=== PATIENT | male | born 1995 | race African-American/Black ===

== ENCOUNTER 2017-01-13 17:41 | Inpatient (IN) | payer OTHER ==
--- NOTE | 2017-01-13 19:43 | PROVIDER DOCUMENTATION ---
HPI-General Adult - General Chief Complaint: Fever Stated Complaint: SENT BY URGENT CARE FOR EVAL Time Seen by Provider: 01/13/17 19:38 Source: RN/ (from [facility]) Allergies/Adverse Reactions: Patient Allergies Allergy/AdvReac Type Severity Reaction Status Date / Time acetaminophen [From Tylenol] Allergy Unknown Unknown Verified 01/13/17 20:20 Home Medications: Home Medication List Medication Instructions Recorded Confirmed Last Taken Type Divalproex [Depakote] 250 mg PO DIRECTED 01/13/17 01/13/17 01/13/17 History Divalproex [Depakote] 500 mg PO DAILY 01/13/17 01/13/17 01/13/17 History Lorazepam [Ativan] 1 mg PO TID 01/13/17 01/13/17 01/13/17 History Pravastatin Sodium 20 mg PO HS 01/13/17 01/13/17 01/13/17 History Quetiapine Fumarate [Seroquel] 600 mg PO HS 01/13/17 01/13/17 01/13/17 History Sennosides/Docusate Sodium [Senna 1 each PO BID 01/13/17 01/13/17 01/13/17 History S Tablet] Trazodone [Desyrel] 50 mg PO DAILY 01/13/17 01/13/17 01/13/17 History - History of Present Illness -Gen Adult Nature of Presenting Problems: 21 y/o BM c/o vomiting x 2 days with coughing. Fever has been 102.5F at home. Unknown diarrhea. Low PO intake. States tachycardia. Pt is non-verbal. No vomiting today; total vomit x 1 last night. Unknown if any other sxs. States vomit is mostly mucus; green-yellow in color. Has had influenza vaccine. Review of Systems - Adult - REVIEW OF SYSTEMS - ADULT ROS:: ROS per family Constitutional: reports: see HPI, fever. denies: chills Eyes: reports: no symptoms reported. denies: blurred vision, double vision Ears, Nose, Mouth & Throat: reports: no symptoms reported Cardiovascular: reports: no symptoms reported. denies: chest pain, palpitations Respiratory: reports: see HPI, cough. denies: shortness of breath Gastrointestinal: reports: no symptoms reported, vomiting. denies: diarrhea Genitourinary: reports: no symptoms reported Musculoskeletal: reports: no symptoms reported. denies: joint pain, joint swelling Integumentary: reports: no symptoms reported. denies: nail changes, rash Neurological: reports: no symptoms reported. denies: numbness, paresthesia Psychiatric: reports: no symptoms reported Endocrine: reports: no symptoms reported. denies: cold intolerance, heat intolerance Hematologic/Lymphatic: reports: no symptoms reported. denies: easy bruising, prolonged bleeding Allergic/Immunologic: reports: no symptoms reported All Other Systems: Reviewed and Negative Past History - Adult - PAST MEDICAL HISTORY-ADULT Review of Records: reports: Nursing Assessment Review, Medications Reviewed Major Childhood Illnesses: reports: other (MR) Cardiovascular: reports: hyperlipidemia Neurological: reports: Seizures/Epilepsy Other Conditions: reports: blindness - SOCIAL HISTORY Living Situation: group Physical Exam-General - PHYSICAL EXAM-ADULT Initial Vital Signs Reviewed: Yes - CONSTITUTIONAL General Appearance: alert - EYES Eyes: pink conjunctivae - HEAD, EARS, NOSE, MOUTH & THROAT HENMT: normocephalic/atraumatic, moist mucous membranes - NECK Neck: supple, normal inspection - RESPIRATORY Respiratory: lungs clear, normal breath sounds. negative: crackles, rales, rhonchi, stridor, wheezing - CARDIOVASCULAR Cardiovascular: tachycardia. negative: bradycardia - GASTROINTESTINAL (ABDOMEN) Abdominal Exam: normal bowel sounds, non tender, soft. negative: distended, guarding, rigid - MUSCULOSKELETAL Extremity: normal range of motion - SKIN Integumentary: normal color, normal turgor, warm/dry - NEUROLOGIC Neurologic: aphasia - PSYCHIATRIC Psych/Mental Status: normal mood/affect Progress - PLAN OF CARE/RESULTS Progress/Plan/Lab Results: Laboratory Tests 01/14/17 01/14/17 01/14/17 00:00 00:00 00:25 WBC 15.76 H RBC 4.40 L Hgb 11.2 L Hct 35.5 L MCV 80.7 L MCH 25.5 L MCHC 31.5 L RDW Std Deviation 18.8 H Plt Count 225 MPV 11.6 H Immature Gran % (Auto) 1.1 H Neut % (Auto) 77.1 H Lymph % (Auto) 7.0 L Faulk % (Auto) 14.7 H Eos % (Auto) 0.0 Baso % (Auto) 0.1 Immature Gran # (Auto) 0.17 H Neut # (Auto) 12.15 H Lymph # (Auto) 1.11 L Faulk # (Auto) 2.31 H Eos # (Auto) 0.00 Baso # (Auto) 0.02 Sodium 135 L Potassium 3.7 Chloride 95 L Carbon Dioxide 25 Anion Gap 15 BUN 15 Creatinine 1.8 H Estimated GFR/1.73 m2 57 BUN/Creatinine Ratio 8 Glucose 122 H Calculated Osmolality 272 Calcium 8.4 L Total Bilirubin 0.45 AST 23 ALT 26 Alkaline Phosphatase 68 Total Protein 8.3 Albumin 3.7 Globulin 4.6 Albumin/Globulin Ratio 0.8 Plasma Lactate 1.3 Orders Category Date Time Status CHEST-2 VIEWS [RAD] Stat Exams 01/13/17 18:18 Taken BLOOD CULTURE [BLDCUL] Stat Lab 01/14/17 00:12 Ordered CBC WITH DIFF [HEME] Stat Lab 01/14/17 00:00 Completed COMPREHENSIVE METABOLIC PANEL [CHEM] Stat Lab 01/14/17 00:00 Completed DIRECT STREP Stat Lab 01/13/17 18:19 Uncollected INFLUENZA SCREEN A/B Stat Lab 01/14/17 00:29 Completed LACTATE, PLASMA [CHEM] Stat Lab 01/14/17 00:25 Completed 0.9% Sodium Chloride Inj [Ns] 1,000 ml Med 01/14/17 01:26 Active IV 999 mls/hr CefTRIAXONE 1 GM/NS [Rocephin 1 gm/Ns] 50 ml Med 01/14/17 01:26 Active IV NOW Ketorolac [Toradol] Med 01/14/17 01:33 Discontinued 30 mg IV NOW ONE Pulse Oximetry Stat Oth 01/13/17 18:18 Active Vital Signs Temp Pulse Resp BP Pulse Ox 01/14/17 01:15 111 H 24 106/56 96 01/14/17 01:06 107 H 24 77/57 98 01/14/17 00:35 117 H 24 87/44 96 01/14/17 00:12 114 H 22 80/53 97 01/13/17 23:46 131 H 16 86/43 93 L 01/13/17 17:49 102.2 F H 139 H 18 119/74 96 acetaminophen [From Tylenol] Allergy (Unknown, Verified 01/13/17 20:20) Unknown Divalproex [Depakote] 250 mg PO DIRECTED 01/13/17 Divalproex [Depakote] 500 mg PO DAILY 01/13/17 Lorazepam [Ativan] 1 mg PO TID 01/13/17 Pravastatin Sodium 20 mg PO HS 01/13/17 Quetiapine Fumarate [Seroquel] 600 mg PO HS 01/13/17 Sennosides/Docusate Sodium [Senna S Tablet] 1 each PO BID 01/13/17 Trazodone [Desyrel] 50 mg PO DAILY 01/13/17 Laboratory 01/14/17 01/14/17 01/14/17 00:25 00:00 00:00 WBC 15.76 H RBC 4.40 L Hgb 11.2 L Hct 35.5 L MCV 80.7 L MCH 25.5 L MCHC 31.5 L RDW Std Deviation 18.8 H Plt Count 225 MPV 11.6 H Immature Gran % (Auto) 1.1 H Neut % (Auto) 77.1 H Lymph % (Auto) 7.0 L Faulk % (Auto) 14.7 H Eos % (Auto) 0.0 Baso % (Auto) 0.1 Immature Gran # (Auto) 0.17 H Neut # (Auto) 12.15 H Lymph # (Auto) 1.11 L Faulk # (Auto) 2.31 H Eos # (Auto) 0.00 Baso # (Auto) 0.02 Sodium 135 L Potassium 3.7 Chloride 95 L Carbon Dioxide 25 Anion Gap 15 BUN 15 Creatinine 1.8 H Estimated GFR/1.73 m2 57 BUN/Creatinine Ratio 8 Glucose 122 H Calculated Osmolality 272 Calcium 8.4 L Total Bilirubin 0.45 AST 23 ALT 26 Alkaline Phosphatase 68 Total Protein 8.3 Albumin 3.7 Globulin 4.6 Albumin/Globulin Ratio 0.8 Plasma Lactate 1.[address] Bermudez; he agreed with admission plan. Discussed admission with family and they agreed with plan. - XRAY 1 XRAY Study: Chest XRAY Interpretation: bilat PNA, per Dr. Bermudez - CONSULTS/PCP/HOSPITALIST Notification #1 *Consult/PCP/Hospitalist*: Dr. Boudreaux Time Discussed: 01:36 Reason/Comments: PNA, MR Consult Disposition: Admit Departure - Departure Time of Disposition Order: 01:36 DIAGNOSIS: Pneumonia Qualifiers: Pneumonia type: due to unspecified organism Laterality: bilateral Lung location : unspecified part of lung Qualified Code(s): J18.9 - Pneumonia, unspecified organism Disposition: ADMITTED INPATIENT 09 Certified Medical Emergency: Emergent Condition: Stable Attestation - Physician/ MEDHAT Attestation Patient care was provided by Advanced Practice Provider:: Yes Advanced Practice Provider:: Brittni Dejesus Advanced Practice Provider documentation review:: The Mid-level provider documentation, treatment plan and medical decision making was reviewed by the physician who agrees with all treatment and medical decision making by the MLP.
[2017-01-14 00:30] LABS: BASO% 0.1 % (0.0-0.8); HEMATOCRIT 35.5 % (42.0-52.0); HEMOGLOBIN 11.2 g/dL (14.0-18.0); IMM GRAN# 0.17 X1000 (0.0-0.04); IMM GRAN% 1.1 % (0.0-0.5); LYMPH# 1.11 X1000 (1.2-3.4); MANUAL DIFF NEEDED? NO; MCH 25.5 PG (27-31); MCHC 31.5 g/dL (33-37); MCV 80.7 FL (81-99); MONO# 2.31 X1000 (0.11-0.59); MONO% 14.7 % (1.7-9.3); MPV 11.6 FL (7.4-10.4); NEUT% 77.1 % (42.2-75.2); PLT 225 X1000 (130-400)
[2017-01-14 00:41] LABS: ALBUMIN 3.7 g/dL (3.5-5.0); CALCIUM 8.4 mg/dL (8.8-10.2); POTASSIUM 3.7 mmol/L (3.5-5.1); TOTAL BILIRUBIN 0.45 mg/dL (0.20-1.00); TOTAL PROTEIN 8.3 g/dL (6.3-8.3)
[2017-01-14] MEDS ORDERED: ROCEPHIN 1 GM/NS 50 ML IV ONE (01:26)
[2017-01-14] MEDS ORDERED: NS 1,000 ML IV ONE ×2 (01:26→01:39)
[2017-01-14] MEDS ORDERED: TORADOL IV ONE (01:33)
[2017-01-14] MEDS ORDERED: LEVAQUIN 750 MG/D5W 150 ML IV ONE (01:38)
[2017-01-14] MEDS ORDERED: LEVAQUIN 500 MG/D5W 100 ML IV ONE (01:40)
[2017-01-14] MEDS ORDERED: DUONEB (A & A) INH PRN (03:33)
[2017-01-14] MEDS: SODIUM CHLORIDE 0.9% INJ SCH (05:00)
[2017-01-14] MEDS: PROTONIX IV SCH (05:00)
[2017-01-14] MEDS: ZOSYN 3.375 GM/NS 50 ML IV SCH ×4 (05:05→20:49)
--- NOTE | 2017-01-14 05:44 | HISTORY AND PHYSICAL ---
PRIMARY CARE PROVIDER: Dr. Fabricio Byrd. CHIEF COMPLAINT: Fever and cough. HISTORY OF PRESENT ILLNESS: Mr. Vivar is a 21-year-old -[place]aur[place] male with a history of mental retardation, seizures, hyperlipidemia, and is also legally blind. Caregivers who are present at bedside report that since Saturday the patient has had fever and a nonproductive wet cough. They have also reported that he has had decreased oral and that all today he slept and was only up for approximately 2 to 3 hours which was unlike him. They reported that he had a fever of up to 102.5 and upon presentation to the ER patient's temperature was 102.2. They did also report that he vomited 1 time today though they deny him having any diarrhea. They stated that his last bowel movement was on Saturday and was normal, no bloody or black, tarry stools. Caregivers also report that he has been urinating normally, has not had decreased urine output. Unfortunately, the patient is not able to verbalize very well. Caregivers only report that occasionally he will say one word or two. The patient was seen at an urgent care prior to his arrival to the ER where they tried to obtain a chest x-ray though due to the patient being uncooperative they did decide to bring him on to the ER for further evaluation. Prior to the patient's arrival to the ER, he did receive his nighttime medications of Ativan, Seroquel, trazodone, and Depakote. Due to this, the patient is quite sedated at this time and does have loud snoring respirations noted upon examination. He was only slightly responsive to painful stimuli. Patient also does appear to have sleep apnea as well. He does have periods where he has decreased respirations and at this time does become hypoxic into the high 80s. Upon evaluation in the ER, the patient was found to have leukocytosis with a white blood cell count of 15.7. Chest x-ray did show what appeared to be a possible right lower lobe pneumonia though given the patient's current respiratory status and what appears to be an undiagnosed history of sleep apnea we have a high suspicion for aspiration pneumonia as well. He also does appear to have an acute kidney injury with a creatinine of 1.8 likely secondary to fluid volume depletion as well as possible side effects from sedative medications. The patient did have some hypotension in the ER with lowest blood pressure reading of 80/53. Normal saline boluses have been ordered and since then his blood pressure has improved with a last reading of 102/56. At this time, we will admit the patient for further treatment and evaluation of his pneumonia. REVIEW OF SYSTEMS: A 14-point review of systems was conducted with the patient, the patient's caregivers at bedside, and all were negative except for pertinent positives mentioned in above HPI. PAST MEDICAL HISTORY: 1. Mental retardation. 2. Legally blind. 3. Seizures. 4. Hyperlipidemia. PAST SURGICAL HISTORY: No known past surgeries. SOCIAL HISTORY: No known history of tobacco, alcohol, or illicit drug use. The patient currently is a resident at a half-way in [place]. FAMILY HISTORY: Due to the patient's current condition and no family members present at this time, we are unable to obtain past family medical history. ALLERGIES: The patient has allergies to Tylenol. HOME MEDICATIONS: 1. Depakote 500 mg p.o. daily in the morning. 2. Depakote 250 mg p.o. at noon. 3. Depakote 250 mg p.o. at bedtime. 4. Trazodone 50 mg p.o. daily. 5. Seroquel 60 mg p.o. at bedtime. 6. Pravastatin 20 mg p.o. at bedtime. 7. Senna S tablet 1 p.o. b.i.d. 8. Ativan 1 mg p.o. t.i.d. DIAGNOSTIC DATA: White cell count is 15.76. Hemoglobin 11.2. Hematocrit 35.5. Platelet count is 225. Sodium 135. Potassium 3.7. Chloride 95. Bicarbonate 25. BUN is 15. Creatinine 1.8 with a GFR of 57. Glucose 122. Calcium 8.4. Liver function tests are within normal limits. Plasma lactate was 1.3. Chest x-ray showed what appears to be a possible right lower lobe pneumonia. PHYSICAL EXAMINATION: VITAL SIGNS: Heart rate 111, respirations 22, blood pressure is 106/56, oxygen saturation is 96% nasal cannula at 3 L. GENERAL: Mr. Vivar is a well-nourished, well-developed 21-year-old -[place] male who was resting in the ER stretcher. He was very lethargic upon examination. HEENT: Head is atraumatic, normocephalic. The patient was uncooperative with assessing pupils at this time. Oral mucosa was slightly dry. Oropharynx was clear. NECK: Supple. Trachea midline. CARDIOVASCULAR: Patient has a normal S1, S2. No murmurs, gallops, or rubs appreciated with a regular rate and rhythm. PULMONARY: Patient has symmetrical chest expansion bilaterally. Lung sounds in bilateral full zuniga were diminished. ABDOMEN: Soft, nontender, nondistended. Bowel sounds are present in all 4 quadrants. EXTREMITIES: No cyanosis, clubbing, or edema noted. Pulse, motor, and sensory were intact in all extremities as well. NEUROLOGICAL: Patient is lethargic at this time though was responsive to painful stimuli. Due to the patient's current condition, neurological exam is limited at this time. ASSESSMENT AND PLAN: 1. Right lower lobe pneumonia. We suspect the patient also may have aspirated so we are going to cover him with Zosyn 3.375 g IV q.6 hours. Blood cultures as well as sputum culture have been obtained. At this time, the patient is lethargic. This is possibly secondary to sedative medicines given prior to arrival to the ER. The patient is also having periods of hypoxia where his oxygen saturation dips into the 80s. We will monitor his respiratory status closely with continuous pulse oximetry and we will continue to follow. 2. Leukocytosis likely secondary to pneumonia. We will continue with treatment as mentioned for number 1 and continue to follow. 3. Hypoxia. As mentioned above, this is likely secondary to a combination of sedative medications as well as sleep apnea. We will monitor his respiratory status closely for any need for further intervention. 4. Acute kidney injury. This is likely secondary to fluid volume depletion. We will continue with fluid resuscitation of normal saline at 125 mL per hour. The patient did receive 2 L normal saline bolus in the ER. 5. Sleep apnea. At this time, the patient is on nasal cannula at 4 L though unfortunately the patient could possibly benefit from CPAP at night though we would not be sure if he would be able to tolerate this so we will just continue to follow at this time. He will be placed on CIC with telemetry. He will have vital signs q.1 hour. DVT prophylaxis will be provided with SCD. GI prophylaxis with Protonix 40 mg IV q.24 hours. We will repeat a CBC and a BMP in the morning. We are awaiting a urinalysis and we have also placed an order for a Depakote level as well. Further orders and recommendations pending hospital course, diagnostic studies, and physician evaluation. Dictated by LA Dawson for Jodie Boudreaux MD
[2017-01-14] MEDS: NS 1,000 ML IV ONE ×2 (06:05→15:27)
[2017-01-14 06:42] LABS: AGAP 18; BUN 18 mg/dL (8-22); CALCIUM 7.7 mg/dL (8.8-10.2); CHLORIDE 97 mmol/L (98-107); COSMO 278; POTASSIUM 4.5 mmol/L (3.5-5.1); SODIUM 138 mmol/L (136-145); TCO2 23 mmol/L (25-35)
[2017-01-14 07:10] LABS: BASO% 0.1 % (0.0-0.8); EOS# 0.01 X1000 (0.0-0.7); EOS% 0.1 % (0.0-10.0); HEMATOCRIT 32.1 % (42.0-52.0); HEMOGLOBIN 9.9 g/dL (14.0-18.0); IMM GRAN# 0.15 X1000 (0.0-0.04); IMM GRAN% 1.1 % (0.0-0.5); LYMPH# 1.24 X1000 (1.2-3.4); LYMPH% 9.5 % (20.5-51.1); MANUAL DIFF NEEDED? YES; MCH 25.3 PG (27-31); MCHC 30.8 g/dL (33-37); MCV 81.9 FL (81-99); MONO# 2.98 X1000 (0.11-0.59); MONO% 22.7 % (1.7-9.3); MPV 11.2 FL (7.4-10.4); NEUT% 66.5 % (42.2-75.2); PLT 183 X1000 (130-400); RBC 3.92 XMIL (4.7-6.1)
[2017-01-14] MEDS: DUONEB (A & A) INH SCH ×6 (07:30→23:30)
--- NOTE | 2017-01-14 08:00 | Diag Imaging Result Document ---
PROCEDURE NAME: CHEST-2 VIEWS - 01/13/2017 CHEST X-RAY 2 VIEWS, 01/13/2017: COMPARISON: None. FINDINGS: There are ill-defined reticulonodular infiltrates bilaterally. Lung volumes are low. No pneumothorax or pleural effusion. IMPRESSION: Bilateral pneumonia. Consider mycoplasma pneumonia.
[2017-01-14 08:53] LABS: BANDS 20 % (0-1); LYMPHS 3 % (21-51); MONO 20 % (1-9)
[2017-01-14] MEDS ORDERED: DEPAKOTE PO SCH ×3 (09:00→21:00)
[2017-01-14] MEDS ORDERED: ATIVAN PO SCH (09:00)
[2017-01-14] MEDS: DEPAKOTE PO SCH ×3 (11:58→20:49)
[2017-01-14 11:59] LABS: URINE CULTURE NEEDED? NO; URINE MICRO REVIEW NEEDED? NO; URINE SOURCE CATH
[2017-01-14] MEDS: PERICOLACE PO SCH ×2 (11:59→20:49)
[2017-01-14 12:08] LABS: BILIRUBIN URINE NEGATIVE (NEGATIVE); BLOOD URINE NEGATIVE (NEGATIVE); COLOR YELLOW; GLUCOSE URINE NEGATIVE (NEGATIVE); LEUKOCYTES URINE NEGATIVE (NEGATIVE); NITRITE URINE NEGATIVE (NEGATIVE); PROTEIN URINE TRACE mg/dL (NEGATIVE); SP GRAVITY URINE 1.015; TURBIDITY URINE CLEAR (CLEAR); UR EPITHELIAL CELLS <10 /HPF (<10); URINE BACTERIA NEGATIVE /HPF; URINE RBC <10 /HPF (<10); URINE WBC <10 /HPF (<10); UROBILINOGEN URINE NORMAL (NORMAL)
[2017-01-14] MEDS ORDERED: NS 1,000 ML ONE (15:10)
[2017-01-14] MEDS: MOTRIN PO PRN ×2 (15:44→20:49)
[2017-01-14] MEDS: ATIVAN PO SCH (17:14)
[2017-01-14] MEDS ORDERED: TYLENOL PO PRN (17:47)
[2017-01-14] MEDS: DESYREL PO SCH (20:49)
[2017-01-14] MEDS: PRAVACHOL PO SCH (20:49)
[2017-01-14] MEDS: SEROQUEL PO SCH (20:50)
[2017-01-15] MEDS: ATIVAN PO SCH ×4 (01:34→18:37)
[2017-01-15] MEDS: DUONEB (A & A) INH SCH ×6 (03:12→22:50)
[2017-01-15] MEDS: SODIUM CHLORIDE 0.9% INJ SCH (05:09)
[2017-01-15] MEDS: ZOSYN 3.375 GM/NS 50 ML IV SCH ×3 (05:09→18:03)
[2017-01-15] MEDS: PROTONIX IV SCH (05:09)
--- NOTE | 2017-01-15 08:55 | PROGRESS NOTE ---
DATE: 01/15/2017 VITAL SIGNS: Stable with temperature 98.5 degrees, heart rate 95, respirations 20, blood pressure 122/64, O2 saturation 99% on 40% Venturi mask. LABORATORY DATA: Hemoglobin 9.9, hematocrit 32.1, white blood count 13,100 with 66% neutrophils. OBJECTIVE: General: He is somnolent this morning, but with no respiratory distress. Lungs: Lungs reveal a few scattered rhonchi, otherwise clear. PLAN: Ambulate in the room. Chest x-ray will be done tomorrow morning.
[2017-01-15] MEDS: PERICOLACE PO SCH ×2 (09:16→20:42)
[2017-01-15] MEDS: DEPAKOTE PO SCH ×3 (09:18→20:42)
[2017-01-15] MEDS: PRAVACHOL PO SCH (20:42)
[2017-01-15] MEDS: DESYREL PO SCH (20:43)
[2017-01-15] MEDS: SEROQUEL PO SCH (20:50)
[2017-01-16] MEDS: DUONEB (A & A) INH SCH ×6 (03:16→23:33)
[2017-01-16] MEDS: ATIVAN PO SCH ×3 (03:25→16:42)
[2017-01-16] MEDS: ZOSYN 3.375 GM/NS 50 ML IV SCH ×4 (04:16→20:57)
[2017-01-16] MEDS: PROTONIX IV SCH (06:44)
--- NOTE | 2017-01-16 08:17 | Diag Imaging Result Document ---
PROCEDURE NAME: CHEST-PORTABLE - 01/16/2017 PORTABLE CHEST X-RAY, 01/16/2017: COMPARISON: 01/13/2017. FINDINGS: There are stable ill-defined bilateral reticulonodular infiltrates. Lung volumes are low. No pneumothorax. Heart size is normal. IMPRESSION: Little change from prior.
--- NOTE | 2017-01-16 09:54 | PROGRESS NOTE ---
DATE: 01/16/2017 Vital signs, temperature 99.1 degrees axillary, heart rate 118, respirations 14, blood pressure 126/84, O2 saturation 87% on room air. Chest x-ray is essentially unchanged. There is persistent ill-defined bilateral reticulonodular infiltrate. There was suggestion of mycoplasma per Dr. Arndt on the initial chest x-ray. PLAN: Continue Zosyn. Add azithromycin. Also check mycoplasma titer.
[2017-01-16] MEDS: ZITHROMAX PO SCH (10:20)
[2017-01-16] MEDS: PERICOLACE PO SCH ×2 (10:21→20:58)
[2017-01-16] MEDS: DEPAKOTE PO SCH ×3 (10:22→20:58)
[2017-01-16] MEDS: PRAVACHOL PO SCH (20:57)
[2017-01-16] MEDS: DESYREL PO SCH (20:57)
[2017-01-16] MEDS: SEROQUEL PO SCH (20:58)
[2017-01-17] MEDS: ATIVAN PO SCH ×3 (03:19→18:35)
[2017-01-17] MEDS: ZOSYN 3.375 GM/NS 50 ML IV SCH ×5 (03:19→20:52)
[2017-01-17] MEDS: DUONEB (A & A) INH SCH ×6 (04:06→22:49)
[2017-01-17 05:42] LABS: BASO% 0.9 % (0.0-0.8); EOS# 0.25 X1000 (0.0-0.7); EOS% 4.3 % (0.0-10.0); HEMOGLOBIN 10.6 g/dL (14.0-18.0); IMM GRAN# 0.35 X1000 (0.0-0.04); LYMPH# 1.12 X1000 (1.2-3.4); LYMPH% 19.3 % (20.5-51.1); MANUAL DIFF NEEDED? YES; MCH 24.8 PG (27-31); MCHC 30.3 g/dL (33-37); MONO# 1.22 X1000 (0.11-0.59); MPV 10.6 FL (7.4-10.4); NEUT% 48.5 % (42.2-75.2); PLT 253 X1000 (130-400); RBC 4.27 XMIL (4.7-6.1)
[2017-01-17] MEDS: PROTONIX IV SCH (05:42)
[2017-01-17 06:01] LABS: BANDS 6 % (0-1); BASO 2 % (0-1); LYMPHS 20 % (21-51); MONO 18 % (1-9); POLYCHROM OCCASIONAL
--- NOTE | 2017-01-17 07:59 | PROGRESS NOTE ---
DATE: 01/17/2017 Vital signs stable with temperature of 98.4 degrees, heart rate of 112, respirations 22, blood pressure 139/80, O2 saturation 97% on 2 liters nasal oxygen. CBC reveals hemoglobin 10.6, hematocrit 35, white count 5800. He continues to clinically improve. Lungs are clear. He is sitting in a chair. He will be discharged when O2 saturation is above 92% on room air.
[2017-01-17] MEDS: PERICOLACE PO SCH ×2 (09:37→20:52)
[2017-01-17] MEDS: DEPAKOTE PO SCH ×3 (09:37→20:52)
[2017-01-17] MEDS: ZITHROMAX PO SCH (09:37)
[2017-01-17 13:47] LABS: MYCOPLASMA PNEUMONIAE AB SEE COMMENTS (())
[2017-01-17] MEDS: PRAVACHOL PO SCH (20:52)
[2017-01-18] MEDS: DESYREL PO SCH (00:32)
[2017-01-18] MEDS: SEROQUEL PO SCH (00:33)
[2017-01-18] MEDS: ATIVAN PO SCH ×2 (01:02→08:03)
[2017-01-18] MEDS: DUONEB (A & A) INH SCH ×4 (03:44→16:02)
[2017-01-18] MEDS: ZOSYN 3.375 GM/NS 50 ML IV SCH ×2 (03:53→10:00)
[2017-01-18] MEDS: PROTONIX IV SCH (03:53)
[2017-01-18] MEDS: SODIUM CHLORIDE 0.9% INJ SCH (03:53)
[2017-01-18 07:38] VITALS: BP 153/88
[2017-01-18] MEDS: ZITHROMAX PO SCH (08:02)
[2017-01-18] MEDS: DEPAKOTE PO SCH ×2 (08:03→11:33)
[2017-01-18] MEDS: PERICOLACE PO SCH (08:03)
--- NOTE | 2017-01-18 08:31 | PROGRESS NOTE ---
DATE: 01/18/2017 OBJECTIVE: Vital signs: Stable with temperature 98.4 degrees, heart rate 81, respirations 16, blood pressure 153/88, O2 saturation earlier this morning was 96% on room air. He currently has oxygen, nasal cannula on at 2 L. General: He is clinically improved. Lungs: Breath sounds are clear. Abdomen: Soft. PLAN: Discontinue oxygen. If O2 saturation remains above 92%, he will be discharged this afternoon.
--- NOTE | 2017-01-19 15:05 | DISCHARGE SUMMARY ---
ADMISSION DATE: 01/13/2017 DISCHARGE DATE: 01/18/2017 FINAL DIAGNOSES: Bilateral pneumonia, aspiration, and possible mycoplasma. DISCHARGE MEDICATIONS: Usual medication at home plus Zithromax 500 mg (5) 1 daily. HISTORY: This is the first recent [facility] admission for this 21-year-old, black man, resident of [facility], who developed shortness of breath and presented to the ER. He was noted to have hypoxia and infiltrates on chest x-ray. Radiologist suggested appearance like mycoplasma. INITIAL LABORATORY: Hemoglobin 11.2 hematocrit 35.5, white blood count [id number] with 77% neutrophils. Sodium 135, potassium 3.7, chloride 95, BUN 15, creatinine 1.8, calcium 8.4. Plasma lactate 1.3. HOSPITAL COURSE: He was initially on a Venti-Mask and placed in CICU. He was placed on Zosyn IV and chest x-ray checked again on 01/16. There was not much change in chest x-ray, but clinically he was slowly improving. O2 saturation today on room air is 96%. He was started a few days ago on the Zithromax in addition to Zosyn. DISCHARGE INSTRUCTIONS: He is to return to the office in 1 week for followup. ADDITIONAL DIAGNOSIS: Mental retardation, moderately severe, and chronic anxiety.
== END 2017-01-18 17:59 | disposition home or self-care (01) | DRG 178 ==
LOC: ED 17:41 → EDIPHOLD 17:49 → UNDOADMIN 01-14 03:23 → EDIPHOLD 01-14 03:23 → 3S 01-14 15:42 → EDIPHOLD 01-14 15:42 → 3N 01-18 00:49
PROVIDERS: ADMIT Family Medicine; ATTEND Family Medicine
DX: J69.0 Pneumonitis due to inhalation of food and vomit (principal); N17.9 Acute kidney failure, unspecified; F72 Severe intellectual disabilities; J15.7 Pneumonia due to Mycoplasma pneumoniae; E78.5 Hyperlipidemia, unspecified; F79 Unspecified intellectual disabilities; G40.909 Epilepsy, unspecified, not intractable, without status epilepticus; H54.8 Legal blindness, as defined in USA; Z79.899 Other long term (current) drug therapy; G47.30 Sleep apnea, unspecified; E86.9 Volume depletion, unspecified; R09.02 Hypoxemia; F41.9 Anxiety disorder, unspecified
CPT/HCPCS: 36415; 71010; 71020; 80048; 80053; 80165; 81001; 83605; 85025; 86738; 87040; 87804; 94640; 94761; 96365; 96366; 96367; 96375; C9113; J0696; J1885; J2543; J7030; P9612; S0164